=== PATIENT | male | born 1945 | race Caucasian/White ===

== ENCOUNTER 2023-03-07 19:25 | Inpatient (IN) | payer OTHER ==
[~2023-03-07 19:25] MED LIST: Iopamidol 300 61% 100 ML VIAL FS ONE
[2023-03-07 19:55] LABS: Actual Bicarbonate (HCO3v) 29.6 mEq/L (22-28); Base Excess 4.9 mEq/L (-2 - +2); Calcium, Ionized (venous) 1.07 mmol/L (1.16-1.32); Chloride (VBG) 87 mmol/L (98-106); Critical Notified Whom: Ashley, RN; Hematocrit-VBG 41 % (42.0-52.0); Hemoglobin (Hb) 13.8 g/dL (12.6-17.4); Potassium (VBG) 3.23 mmol/L (3.70-5.30); Puncture Site Other Site; RapidComm Collect By CBL; Sodium 123.3 mmol/L (133-146); pH (venous) 7.447 (7.32-7.43)
[2023-03-07 20:04] LABS: ALT (SGPT) 10 U/L (8-55); AST (SGOT) 22 U/L (5-34); Albumin 3.7 g/dL (3.4-4.8); Alkaline Phosphatase 72 U/L (40-110); Anion Gap 13 mmol/L (10-20); BUN (Urea Nitrogen) 13 mg/dL (8.4-25.7); Bilirubin, Total 1.3 mg/dL (0.2-1.2); Calc. Creatinine Clearance 0 mL/min (70-130); Calcium 8.8 mg/dL (7.8-10.44); Carbon Dioxide 30 mmol/L (23-31); Chloride 86 mmol/L (98-107); Estimated GFR 94; Globulin 1.8 g/dL (2.4-3.5); Glucose 116 mg/dL (83-110); Magnesium 1.7 mg/dL (1.6-2.6); Potassium 3.6 mmol/L (3.5-5.1); Protein, Total 5.5 g/dL (5.8-8.1); Sodium 125 mmol/L (136-145)
[2023-03-07 20:17] LABS: Hematocrit 40.3 % (38.8-50.0); Hemoglobin 13.2 g/dL (13.5-17.5); Mean Corpuscular HGB CONC 32.8 g/dL (32.0-36.0); Mean Corpuscular Hemoglobin 26.6 pg (27.0-33.0); Mean Corpuscular Volume 81.1 fl (81.2-95.1); Mean Platelet Volume 9.6 fl (7.4-10.4); RBC Distribution Width 13.5 % (11.5-14.5); Red Blood Cell (RBC) Count 4.97 10x6/uL (4.32-5.72); White Blood Cell (WBC) Count 15.7 10x3/uL (3.5-10.5)
[2023-03-07 20:18] LABS: Platelet Count 210 10x3/uL (150-450)
[2023-03-07 20:19] LABS: MDiff Complete? YES
[2023-03-07 21:10] LABS: Eosinophils 1 % (0-10); Monocytes 6 % (0-10); Reactive Lymphocytes 1 % (0-10)
[2023-03-07 21:11] LABS: Band 1 % (5-11)
[2023-03-07 21:12] LABS: Lymphocytes 50 % (21-51); Neutrophil 41 % (42-75)
[2023-03-07 21:14] LABS: Platelet Adequacy Comment Appears Adequate; RBC Morph Comment Within Normal Limits
[2023-03-07] MEDS ORDERED: Cefepime 2 GM VIAL ONE (22:42)
[2023-03-07] MEDS ORDERED: Acetaminophen 325 MG TAB PO PRN (22:51)
[2023-03-07] MEDS ORDERED: Ondansetron PF 4 MG/2 ML Vial IVP PRN (22:51)
[2023-03-07] MEDS ORDERED: Calcium Carbonate 500 MG ChewTAB PO PRN (22:51)
[2023-03-07] MEDS ORDERED: Guaifenesin DM 100-10/5 ML UDCUP PO PRN (22:51)
[2023-03-07] MEDS ORDERED: Sodium Chloride 0.9% 1,000 ML IV SCH ×2 (23:00)
[2023-03-07] MEDS ORDERED: Vancomycin HCl 500 MG VIAL ONE (23:06)
[2023-03-07] MEDS ORDERED: Vancomycin 1 GM VIAL ONE (23:06)
[2023-03-08] MEDS ORDERED: Potassium Chloride 20 MEQ TAB PO SCH ×2 (00:15→06:00)
[2023-03-08] MEDS ORDERED: Nitroglycerin 2% Ointment 1 INCH/1 GM Packet TOP SCH (00:15)
[2023-03-08 00:19] VITALS: BMI 21.7
[2023-03-08] MEDS ORDERED: VANCOMYCIN HCL IVPB SCH (00:45)
[2023-03-08] MEDS ORDERED: SODIUM CHLORIDE 0.9% IVPB SCH (00:45)
[2023-03-08] MEDS ORDERED: Losartan 25 MG TAB PO SCH (02:15)
[2023-03-08 03:12] LABS: #Monocytes 0.6 10x3/uL (0.0-1.1); #Neutrophils 4.2 10x3/uL (1.5-8.4); %Basophils 0.4 % (0.0-2.0); %Eosinophils 0.3 % (0.0-6.0); %Lymphocytes 47.7 % (18.0-47.0); %Neutrophils 44.2 % (40.0-75.0); Hematocrit 37.7 % (38.8-50.0); Hemoglobin 12.3 g/dL (13.5-17.5); Mean Corpuscular HGB CONC 32.6 g/dL (32.0-36.0); Mean Corpuscular Hemoglobin 26.6 pg (27.0-33.0); Mean Corpuscular Volume 81.6 fl (81.2-95.1); Mean Platelet Volume 10.3 fl (7.4-10.4); Platelet Count 150 10x3/uL (150-450); RBC Distribution Width 13.6 % (11.5-14.5); Red Blood Cell (RBC) Count 4.62 10x6/uL (4.32-5.72); White Blood Cell (WBC) Count 9.6 10x3/uL (3.5-10.5)
[2023-03-08 03:29] LABS: Platelet Adequacy Comment Appears Adequate; RBC Morph Comment Within Normal Limits
[2023-03-08 03:39] LABS: Anion Gap 14 mmol/L (10-20); BUN (Urea Nitrogen) 10 mg/dL (8.4-25.7); Calc. Creatinine Clearance 101 mL/min (70-130); Carbon Dioxide 27 mmol/L (23-31); Chloride 89 mmol/L (98-107); Estimated GFR 97; Glucose 107 mg/dL (83-110); Magnesium 1.7 mg/dL (1.6-2.6); Potassium 2.8 mmol/L (3.5-5.1); Sodium 127 mmol/L (136-145)
[2023-03-08] MEDS: DULoxetine 30 MG CAP PO SCH (08:38)
[2023-03-08] MEDS: Calcium Carbonate 600 MG + Vit D TAB PO SCH (08:38)
[2023-03-08] MEDS: Cefepime 2 GM in Sodium Chloride 0.9% 100 ML IVPB SCH ×2 (08:39→20:10)
[2023-03-08] MEDS: Carvedilol 25 MG TAB PO SCH ×2 (08:39→18:00)
[2023-03-08] MEDS: Allopurinol 300 MG TAB PO SCH (08:39)
[2023-03-08] MEDS: Losartan 25 MG TAB PO SCH (08:39)
[2023-03-08] MEDS: Loratadine 10 MG TAB PO SCH (08:39)
[2023-03-08] MEDS: Vancomycin HCl 1 GM in Sodium Chloride 0.9% 250 ML 250 ML IVPB SCH (13:15)
[2023-03-08 13:56] LABS: Hemoglobin A1c 4.6 % (4.0-6.0)
[2023-03-09] MEDS: Vancomycin HCl 1 GM in Sodium Chloride 0.9% 250 ML 250 ML IVPB SCH ×2 (00:06→15:45)
[2023-03-09] MEDS ORDERED: Nitroglycerin 2% Ointment 1 INCH/1 GM Packet TOP SCH (04:30)
[2023-03-09 05:52] LABS: Anion Gap 11 mmol/L (10-20); BUN (Urea Nitrogen) 12 mg/dL (8.4-25.7); Calc. Creatinine Clearance 106 mL/min (70-130); Calcium 7.9 mg/dL (7.8-10.44); Carbon Dioxide 24 mmol/L (23-31); Chloride 98 mmol/L (98-107); Estimated GFR 98; Glucose 106 mg/dL (83-110); Potassium 3.5 mmol/L (3.5-5.1); Sodium 129 mmol/L (136-145)
[2023-03-09] MEDS: Allopurinol 300 MG TAB PO SCH (09:27)
[2023-03-09] MEDS: Carvedilol 25 MG TAB PO SCH ×2 (09:27→18:02)
[2023-03-09] MEDS: Cefepime 2 GM in Sodium Chloride 0.9% 100 ML IVPB SCH ×2 (09:27→22:20)
[2023-03-09] MEDS: Loratadine 10 MG TAB PO SCH (09:28)
[2023-03-09] MEDS: Calcium Carbonate 600 MG + Vit D TAB PO SCH (09:28)
[2023-03-09] MEDS: DULoxetine 30 MG CAP PO SCH (09:28)
[2023-03-09] MEDS: Losartan 25 MG TAB PO SCH (09:28)
[2023-03-09] MEDS: Senokot S 8.6-50 MG TAB PO PRN (09:56)
[2023-03-09] MEDS ORDERED: Senokot 8.6 MG TAB PO PRN (10:26)
[2023-03-09] MEDS ORDERED: Polyethylene Glycol 3350 17 GM Packet PO PRN (10:26)
[2023-03-09 12:23] LABS: Vancomycin, Trough 9.4 ug/mL
[2023-03-09] MEDS: VANCOMYCIN 1.25 GM/250 ML BAG 1.25 GM in Premix Bag 1 BAG IVPB SCH (15:46)
[2023-03-10] MEDS: VANCOMYCIN 1.25 GM/250 ML BAG 1.25 GM in Premix Bag 1 BAG IVPB SCH ×2 (02:28→14:25)
[2023-03-10] MEDS: DULoxetine 30 MG CAP PO SCH (10:27)
[2023-03-10] MEDS: Loratadine 10 MG TAB PO SCH (10:27)
[2023-03-10] MEDS: Losartan 25 MG TAB PO SCH (10:27)
[2023-03-10] MEDS: Allopurinol 300 MG TAB PO SCH (10:28)
[2023-03-10] MEDS: Carvedilol 25 MG TAB PO SCH ×2 (10:36→16:45)
[2023-03-10] MEDS: Calcium Carbonate 600 MG + Vit D TAB PO SCH (10:36)
[2023-03-10] MEDS: HYDROcodone/Acetaminophen 5/325 mg Tablet PO PRN ×2 (10:36→16:44)
[2023-03-10] MEDS: Senokot S 8.6-50 MG TAB PO PRN (10:36)
[2023-03-10] MEDS: Cefepime 2 GM in Sodium Chloride 0.9% 100 ML IVPB SCH (10:38)
[2023-03-10] MEDS ORDERED: Losartan 25 MG TAB PO SCH (14:00)
[2023-03-10] MEDS: Linezolid 600 MG TAB PO SCH (22:18)
[2023-03-11 02:47] LABS: Vancomycin, Trough 13.4 ug/mL
[2023-03-11] MEDS ORDERED: Amlodipine 5 MG TAB PO SCH (03:15)
[2023-03-11] MEDS: DULoxetine 30 MG CAP PO SCH (08:26)
[2023-03-11] MEDS: Losartan Potassium 50 MG TAB PO SCH (08:27)
[2023-03-11] MEDS: Loratadine 10 MG TAB PO SCH (08:27)
[2023-03-11] MEDS: Allopurinol 300 MG TAB PO SCH (08:27)
[2023-03-11] MEDS: Carvedilol 25 MG TAB PO SCH ×2 (08:27→17:49)
[2023-03-11] MEDS: Linezolid 600 MG TAB PO SCH ×2 (08:27→21:16)
[2023-03-11] MEDS: Calcium Carbonate 600 MG + Vit D TAB PO SCH (08:30)
[2023-03-11] MEDS: Senokot S 8.6-50 MG TAB PO PRN (09:42)
[2023-03-11] MEDS: HYDROcodone/Acetaminophen 5/325 mg Tablet PO PRN (17:16)
[2023-03-11] MEDS: Senokot S 8.6-50 MG TAB PO SCH (21:16)
[2023-03-12 04:16] LABS: Anion Gap 9 mmol/L (10-20); BUN (Urea Nitrogen) 13 mg/dL (8.4-25.7); Calc. Creatinine Clearance 104 mL/min (70-130); Calcium 8.2 mg/dL (7.8-10.44); Carbon Dioxide 30 mmol/L (23-31); Chloride 91 mmol/L (98-107); Estimated GFR 98; Glucose 102 mg/dL (83-110); Potassium 3.5 mmol/L (3.5-5.1); Sodium 126 mmol/L (136-145)
[2023-03-12] MEDS: Allopurinol 300 MG TAB PO SCH (08:20)
[2023-03-12] MEDS: Carvedilol 25 MG TAB PO SCH (08:20)
[2023-03-12] MEDS: Linezolid 600 MG TAB PO SCH (08:20)
[2023-03-12] MEDS: Calcium Carbonate 600 MG + Vit D TAB PO SCH (08:20)
[2023-03-12] MEDS: Senokot S 8.6-50 MG TAB PO SCH (08:20)
[2023-03-12] MEDS: Losartan Potassium 50 MG TAB PO SCH (08:21)
[2023-03-12] MEDS: DULoxetine 30 MG CAP PO SCH (08:21)
[2023-03-12] MEDS: Loratadine 10 MG TAB PO SCH (08:21)
[2023-03-12] MEDS ORDERED: Amlodipine 10 MG TAB PO SCH (09:00)
[2023-03-12 12:35] VITALS: BP 160/74; TEMP 97.6
== END 2023-03-12 14:02 | DRG 603 ==
LOC: CSHERS 19:25 → EEVIPCON 19:25 → CSHTELE 23:50
PROVIDERS: ADMIT Student in an Organized Health Care Education/Training Program; ATTEND Family Medicine
DX: L03.116 Cellulitis of left lower limb (principal); C91.10 Chronic lymphocytic leukemia of B-cell type not having achieved remission; D84.9 Immunodeficiency, unspecified; E87.1 Hypo-osmolality and hyponatremia; F41.9 Anxiety disorder, unspecified; F32.A Depression, unspecified; M10.9 Gout, unspecified; I16.0 Hypertensive urgency; J30.2 Other seasonal allergic rhinitis; B95.62 Methicillin resistant Staphylococcus aureus infection as the cause of diseases classified elsewhere; K59.01 Slow transit constipation; Z90.49 Acquired absence of other specified parts of digestive tract; Z98.890 Other specified postprocedural states
CPT/HCPCS: 36415; 80048; 80053; 80202; 82550; 82805; 83036; 83605; 83735; 84443; 85025; 86140; 87040; 87070; 87077; 87186; 87205; 96365; 97139; J0692; J1650; J3370; J3490; J7030; J7050; Q9967

== ENCOUNTER 2023-08-05 23:34 | Inpatient (IN) | payer OTHER ==
[2023-08-06 01:05] LABS: Hematocrit 27.8 % (38.8-50.0); MDiff Complete? YES; Mean Corpuscular HGB CONC 32.4 g/dL (32.0-36.0); Mean Corpuscular Hemoglobin 26.3 pg (27.0-33.0); Mean Corpuscular Volume 81.3 fl (81.2-95.1); Mean Platelet Volume 9.9 fl (7.4-10.4); Platelet Count 237 10x3/uL (150-450); RBC Distribution Width 14.4 % (11.5-14.5); Red Blood Cell (RBC) Count 3.42 10x6/uL (4.32-5.72); White Blood Cell (WBC) Count 8.4 10x3/uL (3.5-10.5)
[2023-08-06 01:06] LABS: Lipase 10 U/L (8-78); Magnesium 1.6 mg/dL (1.6-2.6)
[2023-08-06 01:09] LABS: ALT (SGPT) 13 U/L (8-55); AST (SGOT) 12 U/L (5-34); Albumin 2.4 g/dL (3.4-4.8); Alkaline Phosphatase 43 U/L (40-110); Anion Gap 12 mmol/L (10-20); BUN (Urea Nitrogen) 14 mg/dL (8.4-25.7); Bilirubin, Total 0.3 mg/dL (0.2-1.2); CK (CPK) 12 U/L (30-200); Calc. Creatinine Clearance 0 mL/min (70-130); Calcium 7.4 mg/dL (7.8-10.44); Carbon Dioxide 21 mmol/L (23-31); Chloride 101 mmol/L (98-107); Estimated GFR 98; Globulin 1.3 g/dL (2.4-3.5); Glucose 130 mg/dL (83-110); Potassium 3.6 mmol/L (3.5-5.1); Protein, Total 3.7 g/dL (5.8-8.1); Sodium 130 mmol/L (136-145)
[2023-08-06 01:26] LABS: Band 2 % (5-11); Eosinophils 3 % (0-10); Lymphocytes 76 % (21-51); Monocytes 4 % (0-10); Neutrophil 8 % (42-75); Reactive Lymphocytes 7 % (0-10)
[2023-08-06 01:29] LABS: Microcytosis SLIGHT = 6-15 cells (100X) (0-5/hpf); Platelet Adequacy Comment Appears Adequate
[2023-08-06 01:30] LABS: Toxic Granulation SLIGHT
[2023-08-06 01:31] LABS: Bilirubin Neg (Negative); Blood, Urine 25 (Negative); Clarity Cloudy (Clear); Glucose, Urine (Dipstick) Normal (Negative); Ketone, Urine Negative (Negative); Leukocyte 500 (Negative); Nitrite Negative (Negative); Protein, Urine (Dipstick) 30 mg/dl (Neg-Trace); Specific Gravity, Urine 1.015 (1.005-1.030); Urobilinogen Normal mg/dL (Less than 2)
[2023-08-06 01:40] LABS: Bacteria/HPF Rare-Few HPF (None Seen); CAUTI Indications for Culture Dysuria,urgency,freq; RBC/HPF 0-3 HPF (0-3); Squamous Epithelial None Seen HPF (0-3); WBC/HPF 21-50 HPF (0-3)
[2023-08-06 01:41] LABS: Urine Culture Reflex Yes Yes
[2023-08-06] MEDS ORDERED: fentaNYL 50 mcg/mL 1 mL Vial ONE (01:55)
[2023-08-06] MEDS ORDERED: Piperacillin/Tazobactam 3.375 GM VIAL ONE (02:46)
[2023-08-06] MEDS ORDERED: Acetaminophen 325 MG TAB PO PRN (05:48)
[2023-08-06] MEDS ORDERED: Calcium Carbonate 500 MG ChewTAB PO PRN (05:48)
[2023-08-06] MEDS ORDERED: Ondansetron PF 4 MG/2 ML Vial IVP PRN (05:48)
[2023-08-06] MEDS ORDERED: Senokot S 8.6-50 MG TAB PO PRN (05:48)
[2023-08-06] MEDS ORDERED: Morphine 2 MG/ML VIAL SLOW IVP PRN (06:09)
[2023-08-06 06:26] VITALS: BMI 28.0
[2023-08-06] MEDS: Sodium Chloride 0.9% 1,000 ML IV SCH (06:26)
[2023-08-06] MEDS: Albumin 25% 25 GM (100 mL) BOT IVPB SCH (06:26)
[2023-08-06] MEDS ORDERED: Meropenem 1 GM in Sodium Chloride 0.9% 100 ML IVPB SCH (09:00)
[2023-08-06] MEDS ORDERED: Meropenem 1 GM VIAL ONE (09:20)
[2023-08-06] MEDS: Meropenem 1 GM in Sodium Chloride 0.9% 100 ML IVPB SCH ×2 (09:31→15:52)
[2023-08-06] MEDS: Docusate 100 MG CAP PO SCH (10:00)
[2023-08-06] MEDS: Ferrous Sulfate 325 MG TAB PO SCH (10:00)
[2023-08-06] MEDS: Allopurinol 300 MG TAB PO SCH (10:00)
[2023-08-06] MEDS: Loratadine 10 MG TAB PO SCH (10:00)
[2023-08-06] MEDS: Carvedilol 6.25 MG TAB PO SCH (10:00)
[2023-08-06] MEDS: Sodium Chloride 1 GM TAB PO SCH (10:00)
[2023-08-06] MEDS: VANCOMYCIN 1.75 GM/350 ML BAG 1.75 GM in Premix 1 BAG IVPB SCH (10:04)
[2023-08-06] MEDS ORDERED: Iopamidol 370 76% 100 ML VIAL ONE (10:09)
[2023-08-06] MEDS ORDERED: Carvedilol 6.25 MG TAB ONE (10:54)
[2023-08-06] MEDS: Clindamycin/D5W 900 MG in Premix 1 BAG IVPB SCH (17:02)
[2023-08-06] MEDS: VANCOMYCIN 1.25 GM/250 ML BAG 1.25 GM in Premix 1 BAG IVPB SCH (17:36)
[2023-08-06 20:26] LABS: Potassium, Urine 22.6 mmol/L
[2023-08-06] MEDS: Enoxaparin 40 MG (0.4 mL) SYRINGE SC SCH (21:40)
[2023-08-07 04:59] LABS: Hematocrit 26.8 % (38.8-50.0); Hemoglobin 8.7 g/dL (13.5-17.5); Mean Corpuscular HGB CONC 32.5 g/dL (32.0-36.0); Mean Corpuscular Hemoglobin 26.5 pg (27.0-33.0); Mean Corpuscular Volume 81.7 fl (81.2-95.1); Mean Platelet Volume 9.6 fl (7.4-10.4); Platelet Count 217 10x3/uL (150-450); RBC Distribution Width 14.2 % (11.5-14.5); Red Blood Cell (RBC) Count 3.28 10x6/uL (4.32-5.72); White Blood Cell (WBC) Count 6.6 10x3/uL (3.5-10.5)
[2023-08-07 05:06] LABS: Anion Gap 11 mmol/L (10-20); BUN (Urea Nitrogen) 11 mg/dL (8.4-25.7); Calc. Creatinine Clearance 132 mL/min (70-130); Calcium 7.6 mg/dL (7.8-10.44); Carbon Dioxide 23 mmol/L (23-31); Chloride 101 mmol/L (98-107); Estimated GFR 99; Glucose 81 mg/dL (83-110); Potassium 3.2 mmol/L (3.5-5.1); Sodium 132 mmol/L (136-145)
[2023-08-07 05:18] LABS: MDiff Complete? YES
[2023-08-07 05:22] LABS: Platelet Adequacy Comment Appears Adequate
[2023-08-07 05:24] LABS: Microcytosis SLIGHT = 6-15 cells (100X) (0-5/hpf)
[2023-08-07 05:31] LABS: Band 2 % (5-11); Eosinophils 5 % (0-10); Lymphocytes 73 % (21-51); Monocytes 10 % (0-10); Neutrophil 8 % (42-75); Reactive Lymphocytes 2 % (0-10)
[2023-08-07 05:39] LABS: CRP (Inflammatory) 3.78 mg/dL (= or < 0.5)
[2023-08-07] MEDS: Potassium Bicarbonate/Cit Ac 20 MEQ TAB PO SCH (11:26)
[2023-08-07] MEDS ORDERED: Acetaminophen 500 MG TAB PO PRN (12:59)
[2023-08-07 13:05] LABS: Hemoglobin A1c 5.8 % (4.0-6.0)
[2023-08-07] MEDS: HYDROcodone/Acetaminophen 5/325 mg Tablet PO PRN (13:11)
[2023-08-07 18:16] LABS: Vancomycin, Trough 16.3 ug/mL
[2023-08-07] MEDS: cefTRIAXone\\ROCEPHIN 2 GM in Sodium Chloride 0.9% 100 ML IVPB SCH (20:14)
[2023-08-07 21:57] VITALS: BP 172/74; TEMP 98.5
== END 2023-08-07 22:15 | DRG 607 ==
LOC: CSHERS 23:34 → EEVIPCON 08-06 05:53 → CSHERHOLD 08-06 05:53 → CSHTELE 08-06 13:21
PROVIDERS: ADMIT Student in an Organized Health Care Education/Training Program; ATTEND Hospitalist
DX: L27.1 Localized skin eruption due to drugs and medicaments taken internally (principal); N39.0 Urinary tract infection, site not specified; C91.10 Chronic lymphocytic leukemia of B-cell type not having achieved remission; D84.81 Immunodeficiency due to conditions classified elsewhere; E87.1 Hypo-osmolality and hyponatremia; T45.1X5A Adverse effect of antineoplastic and immunosuppressive drugs, initial encounter; I10 Essential (primary) hypertension; M10.9 Gout, unspecified; F41.9 Anxiety disorder, unspecified; D64.9 Anemia, unspecified; F32.A Depression, unspecified; Z90.49 Acquired absence of other specified parts of digestive tract; Z98.890 Other specified postprocedural states; Z79.899 Other long term (current) drug therapy
CPT/HCPCS: 36415; 80048; 80053; 80202; 81001; 82436; 82550; 83036; 83605; 83690; 83735; 83935; 84133; 84300; 85025; 85060; 86140; 87086; 96365; 96367; 96375; 97139; J0696; J1650; J2185; J2543; J3010; J3370; J3490; J7050; P9047; Q9967